=== PATIENT | female | born 1960 | race Caucasian/White ===

== ENCOUNTER → 2017-04-11 | Outpatient (CLI) | payer BC ==
[~2017-04-11] MED LIST: ATOR10TA82 PO; CPR250 PO; DPKEC250 PO; ERGO500037 PO; LISI-461 PO; LISI-729 PO; OXYC1TAB3 PO
[2017-04-11 10:52] LABS: HEMATOCRIT 31.9 % (37-47); MEAN PLATELET VOLUME 11.3 fL (7.4-10.4); PLATELET COUNT 188 K/uL (130-400); RED BLOOD COUNT 3.19 M/uL (4.2-5.4); WHITE BLOOD COUNT 4.45 K/uL (4.8-10.8)
[2017-04-11 11:09] LABS: ALT/SGPT 18 U/L (12-78); AST/SGOT 11 U/L (15-37); BLOOD UREA NITROGEN 46 mg/dl (7-18); BUN/CREATININE RATIO 22.9 (10-20); CALCIUM 8.7 mg/dl (8.5-10.1); CARBON DIOXIDE 23 mmol/L (21-32); CHLORIDE 114 mmol/L (98-107); GLUCOSE 101 mg/dl (70-99); POTASSIUM 5.1 mmol/L (3.5-5.1); SODIUM 145 mmol/L (136-145); TRIGLYCERIDES 126 mg/dl (0-150); VERY LOW DENSITY LIPOPROT CALC 25 mg/dl
[2017-04-11 11:10] LABS: URINE APPEARANCE CLEAR (CLEAR); URINE BILIRUBIN NEG (NEG); URINE COLOR YELLOW; URINE EPITHELIAL CELL AUTO 0-5 /lpf (0-5); URINE NITRITE NEG (NEG); URINE PH 5.5 (4.5-7.5); URINE SPECIFIC GRAVITY 1.009 (1.000-1.030); UROBILINOGEN NEG (NEG)
[2017-04-11 11:12] LABS: MANUAL MICROSCOPIC REQUIRED? NO; REVIEW REQ? NO
[2017-04-11 11:15] LABS: ALKALINE PHOSPHATASE 73 U/L (45-117); CHOLESTEROL 163 mg/dl (0-200); CHOLESTEROL/HDL RATIO 2.7; HDL CHOLESTEROL 61 mg/dl; LDL CHOLESTEROL CALCULATED 77 mg/dl
[2017-04-11 11:20] LABS: URINE PROTIEN/CREAT RATIO 0.1 (0-0.2); URINE TOTAL PROTEIN 5.8 mg/dl (0-11.9)
[2017-04-11 11:54] LABS: ESTIMATED AVERAGE GLUCOSE 108 mg/dl; HA1C FLAG Normal (Normal)
== END | disposition home or self-care (01) ==
LOC: C.LABBC 07:47
PROVIDERS: ATTEND Internal Medicine Nephrology
DX: Z00.00 Encounter for general adult medical examination without abnormal findings (principal); I12.9 Hypertensive chronic kidney disease with stage 1 through stage 4 chronic kidney disease, or unspecified chronic kidney disease; D64.9 Anemia, unspecified; N25.81 Secondary hyperparathyroidism of renal origin; N18.3 Chronic kidney disease, stage 3 (moderate); E55.9 Vitamin D deficiency, unspecified; E78.00 Pure hypercholesterolemia, unspecified; R73.9 Hyperglycemia, unspecified

== ENCOUNTER 2017-06-03 07:32 | Emergency (ER) | payer BC ==
[~2017-06-03] VITALS: Ht 166.4 cm; Wt 60.2 kg
[~2017-06-03 07:32] MED LIST changes: -ATOR10TA82 PO; -ERGO500037 PO; -LISI-729 PO; -OXYC1TAB3 PO
[2017-06-03] MEDS ORDERED: DPKEC250 PO (07:37)
[2017-06-03] MEDS ORDERED: ERGO500037 PO (07:37)
[2017-06-03] MEDS ORDERED: LISI-729 PO (07:37)
[2017-06-03] MEDS ORDERED: ATOR10TA88 PO (07:37)
[2017-06-03 07:40] VITALS: TEMP 36.4; Ht 166.4 cm; Wt 60.2 kg
[2017-06-03] MEDS ORDERED: ONDANSETRON INJ 2 MG/ML 2 ML VIAL IV STA (07:44)
[2017-06-03] MEDS ORDERED: MoRPHine SULFATE 4 MG/ML 1 ML CARP\\VIAL IV STA (07:44)
[2017-06-03] MEDS ORDERED: SODIUM CHLORIDE 0.9% 1000ML 1,000 ML IV STA (07:44)
--- NOTE | 2017-06-03 07:49 | EMERGENCY ROOM VISIT NOTE ---
History First contact with patient: 07:35 Chief Complaint: HIP PAIN Stated Complaint: FALL/LEG AND HIP PAIN History of Present Illness The patient is a 56 year old female who presents to the Emergency Room with complaints of left hip and leg pain. The patient states that she was walking out of the house this morning to check the air conditioning unit when she tripped down the step on the deck. She hit the posterior left hip in the area of the SI joint. She states she was able to get up and get to the bathroom. She complains of worsening pain. She did not think she would be able to sit in the car due to the pain and therefore EMS was summoned. The patient denies striking her head or having loss of consciousness. She denies any headache dizziness. She denies syncope. She denies any pain in her neck. She denies any chest pain or trouble breathing. She denies any abdominal pain, nausea or vomiting. She denies pain or injury in any other extremity. Review of Systems A 10 system review of systems was completed with positives and pertinent negatives listed in the HPI. Past Medical/Surgical History Medical Problems: (1) CKD (chronic kidney disease) (2) Manic depression Social History Smoking Status: Never Smoker Marital Status: Housing Status: lives with family Current/Historical Medications Scheduled Atorvastatin (Lipitor), 10 MG PO QPM Divalproex Sodium (Divalproex Sodium Dr), 250 MG PO BID Ergocalciferol (Vitamin D 76284 Unit), 50,000 UNIT PO MONTHLY Lisinopril (Zestril), 5 MG PO DAILY Scheduled PRN Oxycodone Ir (Roxicodone Ir), 1-2 TAB PO Q4H PRN for Pain Allergies Coded Allergies: Sulfa Drugs (Unverified Allergy, Mild, OTHER, 06/03/17) Physical Exam Vital Signs Date Time Temp Pulse Resp B/P (MAP) Pulse Ox O2 Delivery O2 Flow Rate FiO2 06/03/17 09:52 64 16 111/77 100 06/03/17 08:49 63 16 113/70 100 Room Air 06/03/17 07:40 36.4 66 16 132/71 98 Room Air Physical Exam VITALS: Vitals are noted on the nurse's note and reviewed by myself. Vital signs stable. GENERAL: This is a 56-year-old female, in no acute distress, nondiaphoretic, well-developed well-nourished. SKIN: The skin was without rashes, erythema, edema, or bruising. There are no lacerations or abrasions. There is no tenting of the skin. Capillary reflex less than 2 seconds. HEAD: Normocephalic atraumatic. EARS: External auditory canals clear, tympanic membranes pearly kramer without erythema or effusion bilaterally. No hemotympanums. No porter sign. No mastoid tenderness. EYES: Pupils equal round and reactive to light and accommodation. Conjunctivae without injection, sclerae without icterus. Extraocular movements intact. NOSE: Patent, turbinates without inflammation or discharge. No sinus tenderness. No active bleeding. FACE: No facial tenderness. Full range of motion of the jaw without tenderness. MOUTH: Mucous membranes moist. Pharynx without erythema or exudate. Uvula midline. Airway patent. Tongue does not deviate. NECK: Supple without nuchal rigidity. Cervical spine is nontender. Full range of motion of the neck without tenderness. No JVD. HEART: Regular rate and rhythm without murmurs gallops or rubs. LUNGS: Clear to auscultation bilaterally without wheezes, rales or rhonchi. No retractions or accessory muscle use. No chest tenderness. ABDOMEN: Positive bowel sounds x 4. Soft, nontender, without masses or organomegaly. MUSCULOSKELETAL: No muscle atrophy, erythema, or edema noted. There is tenderness to palpation in the area of the left SI joint. There is tenderness to palpation over the left hip. There is no shortening or external rotation of the left leg. Negative pelvic rock. There is no obvious deformity. There is no tenderness over the spine. There is no tenderness over the left knee, ankle or foot. The patient is able to move the left hip with moderate discomfort. The remaining extremities are otherwise unremarkable. NEURO: The patient is awake, alert, oriented to person, place, time and events. Medical Decision & Procedures ER Provider Diagnostic Interpretation: LEFT FEMUR 3 VIEWS CLINICAL HISTORY: Fall with left leg pain. FINDINGS: AP, frog-leg, and crosstable lateral views of the left femur are obtained. No prior studies are available for comparison at the time of dictation. The skeletal structures are well mineralized for age. There is no radiographic evidence of left femoral fracture. The visualized left hemipelvis appears intact. The left hip and knee joints are grossly maintained. The overlying soft tissues are within normal limits. IMPRESSION: There is no radiographic evidence of left femoral fracture. LUMBAR SPINE 5 VIEWS HISTORY: Trauma. Pain. fall, low back pain COMPARISON: None. FINDINGS: There is no fracture. Mild scoliosis. Mild degenerative disc change. IMPRESSION: No fracture or subluxation within the lumbar spine. Mild scoliosis. PELVIS 1 OR 2 VIEW ROUTINE CLINICAL HISTORY: fall, left pelvic pain trauma. Pain. COMPARISON: None. DISCUSSION: The bones and joint spaces appear intact. There is no evidence of fracture, dislocation or bony disease. There is no evidence for soft tissue swelling. IMPRESSION: Negative study. Laboratory Results 06/03/17 07:54 Red Blood Count 3.36, Mean Corpuscular Volume 97.0, Mean Corpuscular Hemoglobin 31.8, Mean Corpuscular Hemoglobin Concent 32.8, Mean Platelet Volume 10.5, Neutrophils (%) (Auto) 50.9, Lymphocytes (%) (Auto) 30.1, Monocytes (%) (Auto) 8.0, Eosinophils (%) (Auto) 10.2, Basophils (%) (Auto) 0.6, Neutrophils # (Auto ) 2.55, Lymphocytes # (Auto) 1.51, Monocytes # (Auto) 0.40, Eosinophils # (Auto ) 0.51, Basophils # (Auto) 0.03 06/03/17 07:54 Test 06/03/17 07:45 06/03/17 07:54 Urine Color YELLOW Urine Appearance CLEAR (CLEAR) Urine pH 6.5 (4.5-7.5) Urine Specific [place] 1.010 (1.000-1.030) Urine Protein NEG (NEG) Urine Glucose (UA) NEG (NEG) Urine Ketones NEG (NEG) Urine Occult Blood NEG (NEG) Urine Nitrite NEG (NEG) Urine Bilirubin NEG (NEG) Urine Urobilinogen NEG (NEG) Urine Leukocyte Esterase NEG (NEG) White Blood Count 5.01 K/uL (4.8-10.8) Red Blood Count 3.36 M/uL (4.2-5.4) Hemoglobin 10.7 g/dL (12.0-16.0) Hematocrit 32.6 % (37-47) Mean Corpuscular Volume 97.0 fL (80-100) Mean Corpuscular Hemoglobin 31.8 pg (25-34) Mean Corpuscular Hemoglobin Concent 32.8 g/dl (32-36) Platelet Count 176 K/uL (130-400) Mean Platelet Volume 10.5 fL (7.4-10.4) Neutrophils (%) (Auto) 50.9 % Lymphocytes (%) (Auto) 30.1 % Monocytes (%) (Auto) 8.0 % Eosinophils (%) (Auto) 10.2 % Basophils (%) (Auto) 0.6 % Neutrophils # (Auto) 2.55 K/uL (1.4-6.5) Lymphocytes # (Auto) 1.51 K/uL (1.2-3.4) Monocytes # (Auto) 0.40 K/uL (0.11-0.59) Eosinophils # (Auto) 0.51 K/uL (0-0.5) Basophils # (Auto) 0.03 K/uL (0-0.2) RDW Standard Deviation 45.4 fL (36.4-46.3) RDW Coefficient of Variation 12.8 % (11.5-14.5) Immature Granulocyte % (Auto) 0.2 % Immature Granulocyte # (Auto) 0.01 K/uL (0.00-0.02) Anion Gap 8.0 mmol/L (3-11) Est Creatinine Clear Calc Drug Dose 27.1 ml/min Estimated GFR () 29.5 Estimated GFR (Non- 25.5 BUN/Creatinine Ratio 22.6 (10-20) Calcium Level 9.4 mg/dl (8.5-10.1) Total Bilirubin 0.2 mg/dl (0.2-1) Aspartate Amino Transf (AST/SGOT) 9 U/L (15-37) Alanine Aminotransferase (ALT/SGPT) 18 U/L (12-78) Alkaline Phosphatase 77 U/L (45-117) Total Protein 7.3 gm/dl (6.4-8.2) Albumin 3.5 gm/dl (3.4-5.0) Globulin 3.8 gm/dl (2.5-4.0) Albumin/Globulin Ratio 0.9 (0.9-2) Medications Administered Medications (Trade) Dose Ordered Sig/Diann Route Start Time Stop Time Status Last Admin Dose Admin Sodium Chloride 1,000 ml @ 999 mls/hr Q1H1M STAT IV 06/03/17 07:44 06/03/17 08:44 DC 06/03/17 07:55 999 MLS/HR Morphine Sulfate (MoRPHine SULFATE INJ) 4 mg NOW STAT IV 06/03/17 07:44 06/03/17 07:46 DC 06/03/17 07:57 4 MG Ondansetron HCl (Zofran Inj) 4 mg NOW STAT IV 06/03/17 07:44 06/03/17 07:46 DC 06/03/17 07:55 4 MG ED Course The patient was seen and examined. Previous visits were reviewed. The patient sustained a mechanical fall just prior to arrival. Her pain is primarily in the left posterior hip in the area of the SI joint. She does not have any neurologic deficit on exam or by history. Imaging was obtained as above. There is no evidence for fracture or dislocation. The patient was given 4 mg IV morphine and 4 mg IV Zofran with good improvement in her pain. She was given a walker to assist in ambulation She will be given a prescription for OxyIR. She should contact her family doctor today to schedule a follow-up appointment for further evaluation, management possible referral to physical therapy or additional imaging as indicated. She should return to the ER with any worsening symptoms. The case was discussed with Dr. Goodson who agrees with the assessment and treatment plan Medical Decision DIFFERENTIAL DIAGNOSIS: Lumbar strain, degenerative disc disease, spondylolisthesis, herniated disc, spinal stenosis, osteoporosis, fracture, cauda equina syndrome, neoplasm, infection, inflammatory arthritis, extremity fracture, contusion among others. [place] Drug Monitoring Program Search Results: patient reviewed within database, no issues identified Impression Primary Impression: Fall Additional Impression: Contusion, hip Departure Information Dispostion Home / Self-Care Condition GOOD Prescriptions Oxycodone Ir (Roxicodone Ir) 5 Mg Tab 1-2 TAB PO Q4H Y for Pain, #36 TAB For Initial Treatment Prov: Mare Gloria PA-C 06/03/17 Referrals Ruiz Rehman III, CRNP (PCP) Forms HOME CARE DOCUMENTATION FORM, IMPORTANT VISIT INFORMATION, WORK / SCHOOL INSTRUCTIONS Patient Instructions ED Contusion Hip, [facility] Additional Instructions Tylenol according to package instructions for mild pain. No more than 4 g of Tylenol in 24 hours. Oxy IR 1-2 tablets every 4-6 hrs as needed for worse pain. No driving or alcohol use with Oxy IR. Use the walker to assist in ambulation as needed Contact your family doctor today to schedule a follow-up appointment for further evaluation, management, recheck. You may require physical therapy or repeat imaging if the pain is not improving. Return with any worsening symptoms, numbness, tingling, weakness in the extremities, abdominal pain, urinating blood or generalized worsening symptoms. Work Instructions Return To Work: 2 days Problem Qualifiers Primary Impression: Fall Encounter type: initial encounter Qualified Codes: W19.XXXA - Unspecified fall, initial encounter Additional Impression: Contusion, hip Encounter type: initial encounter Laterality: left Qualified Codes: S70.02XA - Contusion of left hip, initial encounter
[2017-06-03 08:03] LABS: BASO % 0.6 %; BASO ABS # 0.03 K/uL (0-0.2); COMPLETE YES; EOS % 10.2 %; HEMATOCRIT 32.6 % (37-47); IG% 0.2 %; LYMPH % 30.1 %; LYMPH ABS # 1.51 K/uL (1.2-3.4); MEAN CORPUSCULAR HEMOGLOBIN 31.8 pg (25-34); MEAN CORPUSCULAR HGB CONC 32.8 g/dl (32-36); MEAN PLATELET VOLUME 10.5 fL (7.4-10.4); NEUT % 50.9 %; PLATELET COUNT 176 K/uL (130-400); RED BLOOD COUNT 3.36 M/uL (4.2-5.4); WHITE BLOOD COUNT 5.01 K/uL (4.8-10.8)
[2017-06-03 08:22] LABS: BUN/CREATININE RATIO 22.6 (10-20); CALCIUM 9.4 mg/dl (8.5-10.1); CREATININE 2.1 mg/dl (0.60-1.20); POTASSIUM 4.7 mmol/L (3.5-5.1)
[2017-06-03 08:25] LABS: ALB/GLOB RATIO 0.9 (0.9-2)
[2017-06-03 08:28] LABS: URINE APPEARANCE CLEAR (CLEAR); URINE BILIRUBIN NEG (NEG); URINE COLOR YELLOW; URINE NITRITE NEG (NEG); URINE PH 6.5 (4.5-7.5); UROBILINOGEN NEG (NEG); ZZUR CULT IF INDIC CLEAN CATCH NO
--- NOTE | 2017-06-03 08:47 | DIAGNOSTIC IMAGING REPORT ---
PELVIS 1 OR 2 VIEW ROUTINE CLINICAL HISTORY: fall, left pelvic pain trauma. Pain. COMPARISON: None. DISCUSSION: The bones and joint spaces appear intact. There is no evidence of fracture, dislocation or bony disease. There is no evidence for soft tissue swelling. IMPRESSION: Negative study. Electronically signed by: Kojo Hardy M.D. 06/03/2017 8:46 AM Dictated Date/Time: 06/03/2017 8:45 AM
--- NOTE | 2017-06-03 08:48 | DIAGNOSTIC IMAGING REPORT ---
LUMBAR SPINE 5 VIEWS HISTORY: Trauma. Pain. fall, low back pain COMPARISON: None. FINDINGS: There is no fracture. Mild scoliosis. Mild degenerative disc change. IMPRESSION: No fracture or subluxation within the lumbar spine. Mild scoliosis. Electronically signed by: Kojo Hardy M.D. 06/03/2017 8:47 AM Dictated Date/Time: 06/03/2017 8:46 AM
[2017-06-03 09:03] LABS: MANUAL MICROSCOPIC REQUIRED? NO; REVIEW REQ? NO
--- NOTE | 2017-06-03 09:04 | DIAGNOSTIC IMAGING REPORT ---
LEFT FEMUR 3 VIEWS CLINICAL HISTORY: Fall with left leg pain. FINDINGS: AP, frog-leg, and crosstable lateral views of the left femur are obtained. No prior studies are available for comparison at the time of dictation. The skeletal structures are well mineralized for age. There is no radiographic evidence of left femoral fracture. The visualized left hemipelvis appears intact. The left hip and knee joints are grossly maintained. The overlying soft tissues are within normal limits. IMPRESSION: There is no radiographic evidence of left femoral fracture. Electronically signed by: Carlos A Lam M.D. 06/03/2017 9:02 AM Dictated Date/Time: 06/03/2017 9:02 AM
[2017-06-03] MEDS ORDERED: OXYC1TAB3 PO (09:34)
[2017-06-03 09:52] VITALS: BP 111/77; PULSE 64; O2SAT 100
== END 2017-06-03 09:52 | disposition home or self-care (01) ==
LOC: EDBD 07:32 → C.EDB 07:33
DX: S70.02XA Contusion of left hip, initial encounter (principal); W01.0XXA Fall on same level from slipping, tripping and stumbling without subsequent striking against object, initial encounter; Y92.018 Other place in single-family (private) house as the place of occurrence of the external cause; N18.9 Chronic kidney disease, unspecified; F32.9 Major depressive disorder, single episode, unspecified; Z79.899 Other long term (current) drug therapy

== ENCOUNTER → 2017-10-24 | Outpatient (CLI) | payer BC ==
[~2017-10-24] MED LIST changes: +ATOR10TA82 PO; -CPR250 PO; +ERGO500037 PO; -LISI-461 PO; +LISI-729 PO; +OXYC1TAB3 PO
[2017-10-24 11:04] LABS: MANUAL MICROSCOPIC REQUIRED? NO; REVIEW REQ? NO; URINE APPEARANCE CLEAR (CLEAR); URINE BILIRUBIN NEG (NEG); URINE COLOR YELLOW; URINE EPITHELIAL CELL AUTO 0-5 /lpf (0-5); URINE NITRITE NEG (NEG); URINE SPECIFIC GRAVITY 1.012 (1.000-1.030); UROBILINOGEN NEG (NEG)
[2017-10-24 11:11] LABS: ALT/SGPT 18 U/L (12-78); AST/SGOT 9 U/L (15-37); BLOOD UREA NITROGEN 42 mg/dl (7-18); BUN/CREATININE RATIO 21.8 (10-20); CALCIUM 8.9 mg/dl (8.5-10.1); CARBON DIOXIDE 24 mmol/L (21-32); CHLORIDE 113 mmol/L (98-107); CREATININE 1.91 mg/dl (0.60-1.20); GLUCOSE 96 mg/dl (70-99); HDL CHOLESTEROL 63 mg/dl; POTASSIUM 4.7 mmol/L (3.5-5.1); SODIUM 141 mmol/L (136-145)
[2017-10-24 11:14] LABS: ALB/GLOB RATIO 0.9 (0.9-2); ALKALINE PHOSPHATASE 79 U/L (45-117); CHOLESTEROL 174 mg/dl (0-200); CHOLESTEROL/HDL RATIO 2.8; LDL CHOLESTEROL CALCULATED 81 mg/dl; PHOSPHORUS 3.8 mg/dl (2.5-4.9); TRIGLYCERIDES 149 mg/dl (0-150); VERY LOW DENSITY LIPOPROT CALC 30 mg/dl
[2017-10-24 11:17] LABS: CREATININE, URINE 56.5 mg/dl; URINE PROTIEN/CREAT RATIO 0.2 (0-0.2); URINE TOTAL PROTEIN 8.9 mg/dl (0-11.9)
[2017-10-24 11:29] LABS: HEMATOCRIT 33.4 % (37-47); MEAN CELL VOLUME 101.5 fL (80-100); MEAN CORPUSCULAR HEMOGLOBIN 33.4 pg (25-34); MEAN CORPUSCULAR HGB CONC 32.9 g/dl (32-36); MEAN PLATELET VOLUME 11.5 fL (7.4-10.4); PLATELET COUNT 199 K/uL (130-400); RED BLOOD COUNT 3.29 M/uL (4.2-5.4); WHITE BLOOD COUNT 5.27 K/uL (4.8-10.8)
== END | disposition home or self-care (01) ==
LOC: C.LABBC 07:51
PROVIDERS: ATTEND Internal Medicine Nephrology
DX: I12.9 Hypertensive chronic kidney disease with stage 1 through stage 4 chronic kidney disease, or unspecified chronic kidney disease (principal); D64.9 Anemia, unspecified; N18.3 Chronic kidney disease, stage 3 (moderate); N25.81 Secondary hyperparathyroidism of renal origin; E55.9 Vitamin D deficiency, unspecified; E78.00 Pure hypercholesterolemia, unspecified; R73.9 Hyperglycemia, unspecified

== ENCOUNTER → 2017-11-10 | Outpatient (CLI) | payer BC ==
--- NOTE | 2017-11-11 07:55 | MAMMOGRAPHY REPORT ---
BILATERAL DIGITAL SCREENING MAMMOGRAM TOMOSYNTHESIS WITH CAD: 11/10/2017 CLINICAL HISTORY: Routine screening. Patient has no complaints. TECHNIQUE: Breast tomosynthesis in addition to standard 2D mammography was performed. Current study was also evaluated with a Computer Aided Detection (CAD) system. COMPARISON: Comparison is made to exams dated: 08/28/2016 mammogram, 08/16/2015 mammogram, 04/11/2014 m ammogram, 02/15/2013 mammogram, 11/07/2011 mammogram, and 08/01/2010 mammogram - [facility] enter. BREAST COMPOSITION: There are scattered areas of fibroglandular density in both breasts. FINDINGS: The parenchymal pattern is unchanged. There are a few benign rim calcifications and minim al vascular calcification in the breasts. No developing mass, architectural distortion or cluster of suspicious microcalcifications is seen in either breast. IMPRESSION: ACR BI-RADS CATEGORY 2: BENIGN There is no mammographic evidence of malignancy. A 1 year screening mammogram is recommended. The pa tient will receive written notification of the results. Approximately 10% of breast cancers are not detected with mammography. A negative mammographic report should not delay biopsy if a clinically suggestive mass is present. Miesha Mancilla M.D. ay/:11/10/2017 18:36:16 [employer] Instructor: Deepti NICHOLS)(), [facility] letter sent: Normal 1/2 BI-RADS Code: ACR BI-RADS Category 2: Benign
== END | disposition home or self-care (01) ==
LOC: C.MAMM 15:59
PROVIDERS: ATTEND Obstetrics & Gynecology
DX: Z12.31 Encounter for screening mammogram for malignant neoplasm of breast (principal)